=== PATIENT | female | born 1945 | race Caucasian/White ===

== ENCOUNTER 2018-07-25 14:30 | Inpatient (IN) ==
[2018-07-25 15:04] LABS: BASO# 0.03 X1000 (0.0-0.2); BASO% 0.5 % (0.0-0.8); EOS# 0.06 X1000 (0.0-0.7); HEMATOCRIT 40.2 % (37.0-47.0); HEMOGLOBIN 13.5 g/dL (12.0-16.0); LYMPH# 1.06 X1000 (1.2-3.4); LYMPH% 17.4 % (20.5-51.1); MCH 29.8 PG (27-31); MCHC 33.6 g/dL (33-37); MCV 88.7 FL (81-99); MONO# 0.45 X1000 (0.11-0.59); MONO% 7.4 % (1.7-9.3); MPV 9.6 FL (7.4-10.4); NEUT# 4.48 X1000 (1.4-6.5); NEUT% 73.7 % (42.2-75.2); PLT 264 X1000 (130-400); RBC 4.53 XMIL (4.2-5.4); WBC 6.08 X1000 (4.8-10.8)
[2018-07-25 15:19] LABS: INR 1.01; PROTIME 13.8 Seconds (11.0-16.0)
[2018-07-25 15:20] LABS: PTT 30.3 Seconds (22.3-41.8)
[2018-07-25 15:27] LABS: AGAP 10; ALBUMIN 4.4 g/dL (3.5-5.0); ALKALINE PHOSPHATASE 88 U/L (32-104); BUN 17 mg/dL (8-22); CALCIUM 8.8 mg/dL (8.8-10.2); CHLORIDE 104 mmol/L (98-107); CK PROFILE 96 U/L (24-173); COSMO 285; CREATININE 0.7 mg/dL (0.5-0.9); ESTIMATED GFR > 60; GLUCOSE 103 mg/dL (70-104); GOT 21 U/L (10-30); GPT 10 U/L (10-36); POTASSIUM 3.8 mmol/L (3.5-5.1); SODIUM 142 mmol/L (136-145); TCO2 28 mmol/L (25-35); TOTAL PROTEIN 6.9 g/dL (6.3-8.3)
--- NOTE | 2018-07-25 15:27 | Diag Imaging Result Doc PS360 ---
EXAM: CHEST-2 VIEWS HISTORY: cp/sob TECHNIQUE: PA and Lateral chest x-ray COMPARISON: 10/18/2017, 03/12/2017 FINDINGS: The cardiomediastinal silhouette is within normal limits. The pulmonary vasculature is not congested. There is pulmonary emphysema. There are baseline bibasilar reticulonodular infiltrates compatible with fibrosis. Associated basilar markings appear slightly more prominent today suggesting superimposed acute infiltrates versus a progression of disease. No effusion. No pneumothorax. IMPRESSION: 1.Slight increase in bibasilar reticular nodular infiltrates consistent with chronic disease progression or mild acute infiltrates superimposed on chronic changes. 2.Pulmonary emphysema. Electronically signed by Alessandra Silva 07/25/2018 3:25 PM
[2018-07-25] MEDS ORDERED: ROCEPHIN 1 GM in NS 50 ML IV ONE (17:27)
[2018-07-25] MEDS ORDERED: DOXYCYCLINE 100 MG in NS 250 ML IV SCH (18:00)
--- NOTE | 2018-07-25 20:01 | HISTORY AND PHYSICAL ---
CHIEF COMPLAINT: Chest pain with productive cough. HISTORY OF PRESENT ILLNESS: This is a 72-year-old female with a history of hypertension and prior pneumonia, who presents to the emergency room complaining of chest pain with a productive cough that started about 3 days ago. She has had nausea within the last 24 hours. She does state that she has had these symptoms in the past and was diagnosed with pneumonia and, in fact, her chest x- ray shows bibasilar nodular infiltrates and pulmonary emphysema. PAST MEDICAL HISTORY: Hypertension, panic attacks, pneumonia. PAST SURGICAL HISTORY: Back surgeries, tonsillectomy, tubal ligation. SOCIAL HISTORY: She denies any alcohol, tobacco or illicit drug use. ALLERGIES: Codeine, which causes nausea and vomiting. HOME MEDICATIONS: A list will be obtained by the nursing staff and once verified, will review and restart as appropriate. REVIEW OF SYSTEMS: Discussed with patient with pertinent positives stated in the HPI. She denied any syncope, dizziness, palpitations, any fevers, chills, night sweats, recent weight loss or weight gain, any vomiting, diarrhea, constipation, black or bloody vomitus or stools, any hematuria, dysuria, frequency, urgency. PHYSICAL EXAMINATION: GENERAL: This is a 72-year-old female who is lying on the stretcher in the emergency room in no distress. VITAL SIGNS: Blood pressure 153/77, with a heart rate of 63, respirations are 16, temperature is 98 oral, with O2 sats 97-100% on room air. EYES: Pupils are equal, round, react to light. EOMs are intact. Sclerae anicteric. HEENT: Head is normocephalic, atraumatic. Mucous membranes are moist. NECK: Supple, with trachea midline. CARDIOVASCULAR: Regular rate and rhythm. S1 and S2 appreciated. PULMONARY: Breath sounds are clear. They are diminished in the bases. Chest rises and falls with symmetric respiration. Chest wall is nontender to palpation. GASTROINTESTINAL: Abdomen is soft, nontender, nondistended with bowel sounds in all 4 quadrants. NEUROLOGIC: She is alert and oriented x 3. SKIN: Warm and dry. LABS: WBC is 6.0, with hemoglobin 13.5, hematocrit 40.2, platelets of 264,000. Sodium is 142, potassium 3.8, BUN 17, creatinine 0.7 with a glucose of 103. ASSESSMENT AND PLAN: 1. Bibasilar nodular infiltrates, pneumonia. Blood cultures were obtained in the emergency room. She was given Rocephin. We will continue Rocephin daily. We will add doxycycline and follow. As she does have nodular infiltrates, we will check a CT of the thorax with contrast. obtain a sputum culture. Incentive Spirometry 2. HTN restart home meds 3. Panic attacks 4. GERD restart Prilosec Repeat a CBC and CMP in the morning. Telemetry. For deep venous thrombosis prophylaxis, will use SCDs. For gastrointestinal prophylaxis, will continue her Prilosec. Further treatments pending hospital course. Dictated by RANI Medina for Efren Pantoja MD cc: RANI Medina MD MTDD
[2018-07-25] MEDS ORDERED: PRILOSEC PO SCH (21:00)
[2018-07-25] MEDS ORDERED: ZOFRAN IV PRN (22:08)
[2018-07-25] MEDS ORDERED: SOLU-MEDROL IV SCH (22:08)
--- NOTE | 2018-07-25 22:24 | HISTORY AND PHYSICAL ---
CHIEF COMPLAINT: Chest pain. ADDENDUM: Patient seen and examined by myself. Full note dictated and discussed with my nurse practitioner. Patient appears to have worsening nodular pneumonia. We will place on antibiotics, check a CT scan, and we will follow. Please see full note. cc: Efren Pantoja MD
[2018-07-26 01:58] LABS: BILIRUBIN URINE NEGATIVE (NEGATIVE); BLOOD URINE NEGATIVE (NEGATIVE); CLARITY CLEAR (CLEAR); COLOR YELLOW; GLUCOSE URINE NEGATIVE (NEGATIVE); KETONE URINE NEGATIVE (NEGATIVE); LEUKOCYTES URINE NEGATIVE (NEGATIVE); NITRITE URINE NEGATIVE (NEGATIVE); PROTEIN URINE NEGATIVE (NEGATIVE); UROBILINOGEN URINE NORMAL
[2018-07-26 01:59] LABS: URINE SOURCE CLEAN CATCH
[2018-07-26 02:09] LABS: URINE EPITHELIAL CELLS <10 /HPF (<10); URINE RBC <10 /HPF (<10); URINE WBC <10 /HPF (<10)
[2018-07-26 02:10] LABS: URINE BACTERIA NEGATIVE /HFP
[2018-07-26 07:29] LABS: BASO# 0.03 X1000 (0.0-0.2); BASO% 0.6 % (0.0-0.8); EOS# 0.01 X1000 (0.0-0.7); EOS% 0.2 % (0.0-10.0); HEMATOCRIT 41.4 % (37.0-47.0); HEMOGLOBIN 13.9 g/dL (12.0-16.0); IMM GRAN# 0.01 X1000 (0.0-0.04); IMM GRAN% 0.2 % (0.0-0.5); LYMPH# 0.55 X1000 (1.2-3.4); LYMPH% 10.8 % (20.5-51.1); MCH 29.7 PG (27-31); MCHC 33.6 g/dL (33-37); MCV 88.5 FL (81-99); MONO# 0.08 X1000 (0.11-0.59); MONO% 1.6 % (1.7-9.3); MPV 9.9 FL (7.4-10.4); NEUT# 4.42 X1000 (1.4-6.5); NEUT% 86.6 % (42.2-75.2); PLT 261 X1000 (130-400); RBC 4.68 XMIL (4.2-5.4)
[2018-07-26 07:37] LABS: AGAP 12; ALBUMIN 4.1 g/dL (3.5-5.0); ALKALINE PHOSPHATASE 84 U/L (32-104); BUN 15 mg/dL (8-22); CALCIUM 8.7 mg/dL (8.8-10.2); CHLORIDE 106 mmol/L (98-107); COSMO 282; CREATININE 0.7 mg/dL (0.5-0.9); ESTIMATED GFR > 60; GLUCOSE 98 mg/dL (70-104); GOT 22 U/L (10-30); GPT 9 U/L (10-36); POTASSIUM 3.9 mmol/L (3.5-5.1); SODIUM 141 mmol/L (136-145); TCO2 23 mmol/L (25-35); TOTAL PROTEIN 6.8 g/dL (6.3-8.3)
[2018-07-26] MEDS: DOXYCYCLINE 100 MG in NS 250 ML IV SCH ×2 (07:59→21:38)
[2018-07-26] MEDS: PRILOSEC PO SCH ×2 (08:00→21:38)
[2018-07-26] MEDS: PROZAC PO SCH (08:01)
[2018-07-26] MEDS: NORVASC PO SCH (08:02)
[2018-07-26] MEDS: VITAMIN D PO SCH (08:02)
[2018-07-26 08:20] LABS: ANISOCYTOSIS 1+; LYMPHS 10 % (21-51); MONO 2 % (1-9); SEGS 88 % (42-75)
[2018-07-26] MEDS: SOLU-MEDROL IV SCH ×2 (08:38→17:29)
--- NOTE | 2018-07-26 08:59 | EKG Report ---
Test Performed on : 07/25/2018 2:31:07 PM Test Reason : cp/sob Blood Pressure : / mmHG Vent. Rate : 067 BPM Atrial Rate : 067 BPM P-R Int : 164 ms QRS Dur : 076 ms QT Int : 432 ms P-R-T Axes : 074 082 069 degrees QTc Int : 456 ms Normal sinus rhythm. Junctional ST depression, probably normal Borderline ECG When compared with ECG of 08-DEC-2011 14:19, Previous ECG has undetermined rhythm, needs review Unconfirmed Result
--- NOTE | 2018-07-26 09:39 | Diag Imaging Result Doc PS360 ---
EXAM: CT THORAX W/CONTRAST HISTORY: pneumonia TECHNIQUE: CT chest with intravenous contrast. COMPARISON: None. FINDINGS: No pleural effusions. No thoracic aortic aneurysm or dissection. Normal opacification of the pulmonary arteries. No cardiomegaly. There calcified mediastinal and hilar nodes. There is bronchiectasis in the lower lobes and right middle lobe. There are multifocal nodular infiltrates most pronounced in the lower lobes. No consolidation. IMPRESSION: Lower lung bronchiectasis with multinodular infiltrates. Follow-up after treatment is suggested. This exam was performed using automated exposure control, adjustment of mA or kV according to patient size, and/or use of iterative reconstruction technique. Electronically signed by Nasim Alegria 07/26/2018 9:36 AM
[2018-07-26] MEDS: ROCEPHIN 1 GM in NS 50 ML IV SCH (17:29)
--- NOTE | 2018-07-26 19:34 | PROGRESS NOTE ---
DATE: 07/26/2018 SUBJECTIVE: Patient notes that she is feeling a little bit better still having lots of cough, congestion, still having shortness of breath. Denies any fevers or chills. PHYSICAL: Vital Signs: Temperature 97.5, pulse 71, respiratory 22, BP 125/68, O2 saturation 100% on room air. General: Patient is awake, alert, frail-appearing female who is currently in no respiratory distress, she is pleasant to talk with. HEENT: Normocephalic. Neck: Supple. CV: Regular rate, no murmurs. Chest: Decreased but equal breath sounds. Abdomen: Soft, nondistended. Extremities: Moves all extremities. Neuro: No changes. ASSESSMENT: 1. Bibasilar nodular infiltrates. Will continues antibiotics. 2. Abnormal chest x-ray. Multiple chest x-rays in the past have been read as emphysematous although patient is adamant that she went to a welder production line arc once and was told she did not have emphysema. PLAN: We will continue doxycycline, Rocephin, will continue Solu-Medrol, will check a CT scan and will follow. cc: Efren Pantoja MD
[2018-07-27] MEDS: SOLU-MEDROL IV SCH ×3 (01:14→16:34)
[2018-07-27] MEDS: TYLENOL PO PRN ×2 (01:20→11:52)
[2018-07-27] MEDS: PRILOSEC PO SCH ×3 (05:25→20:33)
[2018-07-27] MEDS: DOXYCYCLINE 100 MG in NS 250 ML IV SCH (07:48)
[2018-07-27] MEDS: NORVASC PO SCH (08:10)
[2018-07-27] MEDS: PROZAC PO SCH (08:11)
[2018-07-27] MEDS: VITAMIN D PO SCH (08:11)
[2018-07-27] MEDS ORDERED: LACTULOSE PO PRN (08:34)
[2018-07-27] MEDS: ZANTAC PO SCH ×2 (09:16→20:33)
[2018-07-27] MEDS: ROCEPHIN 1 GM in NS 50 ML IV SCH (16:34)
--- NOTE | 2018-07-27 19:03 | PROVIDER DOCUMENTATION ---
This chart was entered by Ora Lassiter Scribe, acting as scribe for Nixon Murry MD. HPI-Chest Pain - General Chief Complaint: Chest Pain Stated Complaint: CHEST PAIN Time Seen by Provider: 07/25/18 15:00 Source: patient Allergies/Adverse Reactions: Patient Allergies Allergy/AdvReac Type Severity Reaction Status Date / Time codeine AdvReac NAUSEA/VOMI Verified 07/25/18 14:37 TING Home Medications: Home Medication List Medication Instructions Recorded Confirmed Last Taken Type Fluoxetine [Prozac] 20 mg PO QAM 07/17/14 07/25/18 03/11/17 History 0900 Amlodipine [Norvasc] 10 mg PO DAILY PRN 11/05/16 07/25/18 1 Day Ago History ~11/04/16 Cholecalciferol (Vitamin D3) 2,000 unit PO DAILY 03/11/17 07/25/18 03/11/17 History [Vitamin D3] 0900 Zonisamide [Zonegran] 300 mg PO QHS 03/11/17 07/26/18 03/11/17 History 0900 Ranitidine [Zantac] 150 mg PO BID 07/26/18 07/26/18 Unknown History - History of Present Illness-CP Nature of Presenting Problem: 72 yof presents to ED c/o SOB, chest pain, pressure, weakness, nausea, chills, cough, and decreased appetite. Pt denies vomiting, abdominal pain or syncope. Pt has hx of chronic back pain. Location: reports: substernal Chest Pain Radiation: reports: no radiation Quality of Pain: reports: pressure Severity in ED: moderate Onset/Duration: last week Timing: still present, getting worse Context/Activities at Onset: reports: none Modifying Factors: improves with: nothing Nitro Today/Relief: no nitro taken today Aspirin Treatment Today: no aspirin today Review of Systems - Adult - REVIEW OF SYSTEMS - ADULT Constitutional: reports: see HPI, chills, fatique. denies: fever Eyes: reports: no symptoms reported Ears, Nose, Mouth & Throat: reports: no symptoms reported Cardiovascular: reports: see HPI, chest pain. denies: edema, syncope Respiratory: reports: see HPI, chronic cough, shortness of breath, wheezing Gastrointestinal: reports: see HPI, nausea, poor appetite. denies: abdominal pain, diarrhea, vomiting Genitourinary: reports: no symptoms reported Musculoskeletal: reports: no symptoms reported Integumentary: reports: no symptoms reported Neurological: reports: no symptoms reported Psychiatric: reports: no symptoms reported Endocrine: reports: no symptoms reported Hematologic/Lymphatic: reports: no symptoms reported Allergic/Immunologic: reports: no symptoms reported All Other Systems: Reviewed and Negative Past History - Adult - PAST MEDICAL HISTORY-ADULT Review of Records: reports: Nursing Assessment Review, Medications Reviewed, Social history reviewed & non-contributory. Major Childhood Illnesses: reports: denies history Cardiovascular: reports: denies history Respiratory: reports: denies history Gastrointestinal: reports: denies history Obstetrical/Gynecological: reports: denies history Genitourinary: reports: denies history Musculoskeletal: reports: chronic pain (back) Neurological: reports: denies history Endocrine/Immune: reports: denies history Other Conditions: reports: denies history - PRIOR SURGERIES/PROCEDURES Surgical/Procedure History: reports: BTL, tonsillectomy, back/neck - IMMUNIZATION STATUS Childhood Immunizations: See Nurse Assessment Flu Vaccine: See Nurse Assessment - FAMILY HISTORY Family History: reviewed, not pertinent Physical Exam-General - PHYSICAL EXAM-ADULT Initial Vital Signs Reviewed: Yes - CONSTITUTIONAL General Appearance: appears well, alert, moderate distress, thin. negative: anxious, combative - EYES Eyes: PERRL/EOMI, pink conjunctivae. negative: photophobia - HEAD, EARS, NOSE, MOUTH & THROAT HENMT: moist mucous membranes, normal ENT inspection. negative: angioedema - NECK Neck: non-tender, full range of motion, supple, normal inspection. negative: Brudzinski's sign, carotid bruit - RESPIRATORY Respiratory: chest non-tender, lungs clear, normal breath sounds, no pleuratic chest pain, no respiratory distress, no accessory muscle use. negative: crackles, rales, rhonchi - CARDIOVASCULAR Cardiovascular: normal peripheral pulses, regular rate, rhythm, no edema, no gallop, no JVD, no murmur. negative: bradycardia, tachycardia - GASTROINTESTINAL (ABDOMEN) Abdominal Exam: normal bowel sounds, non tender, soft, no organomegaly. negative: rigid, rebound, tenderness - LYMPHATIC Lymphatic: no adenopathy. negative: striations - MUSCULOSKELETAL Back Exam: normal inspection. negative: swelling Extremity: normal range of motion, normal inspection. negative: deformity - SKIN Integumentary: normal color, normal turgor, warm/dry. negative: diaphoresis, jaundice - NEUROLOGIC Neurologic: clinical therapist II-XII nml as tested, grossly normal, no motor/sensory deficits. negative: facial droop, focal weakness - PSYCHIATRIC Psych/Mental Status: normal mood/affect, normal thought content, normal thought process, oriented x 3. negative: anxious Progress - PLAN OF CARE/RESULTS Result Diagrams: 07/26/18 06:20 07/26/18 06:20 - EKG 1 Time of EKG reading by physician:: 14:32 EKG Read and Signed by:: Nixon Murry EKG Interpretation (*Must complete 3 of following elements*): Abnormal Rate: 67 Rhythm: normal sinus QRS: normal ST Wave: depressed (junctional) - XRAY 1 XRAY: Bilateral XRAY Study: Chest Impression: See EMR Report (IMPRESSION: 1.Slight increase in bibasilar reticular nodular infiltrates consistent with chronic disease progression or mild acute infiltrates superimposed on chronic changes. 2.Pulmonary emphysema. Electronically signed by Alessandra Silva 07/25/2018 3:25 PM) - CONSULTS/PCP/HOSPITALIST Notification #1 *Consult/PCP/Hospitalist*: Allan Olson Time Discussed: 17:22 Consult Disposition: other (he accepted pt for admission) Departure - Departure Date of Disposition Decision: 07/25/18 Time of Disposition Decision: 17:25 DIAGNOSIS: Chest pain, Pneumonia Disposition: ADMITTED INPATIENT 09 Certified Medical Emergency: Emergent Condition: Stable - Critical Care Note This patient required my direct & personal management of CC.: No Attestation - Physician/ AMELIA Attestation Patient care was provided by Advanced Practice Provider:: No The physician spent face to face time with patient:: Yes Advanced Practice Provider documentation review:: Supervising physician onsite and consulted in the evaluation and care of this patient. The physician did have a face to face encounter with the patient. This chart was documented by the indicated scribe, (Ora Lassiter Scribe) and accurately reflects the services I performed and decisions made by me, Nixon Murry MD, as attested by the provider's signature.
[2018-07-27] MEDS: ZONEGRAN PO SCH (20:32)
[2018-07-27] MEDS: DOXYCYCLINE PO SCH (20:33)
--- NOTE | 2018-07-28 00:41 | PROGRESS NOTE ---
DATE: 07/27/2018 SUBJECTIVE: Patient overall notes that she is feeling better. She is having less cough, congestion. Denies any fevers or chills. PHYSICAL EXAMINATION: Vital Signs: Temperature 97.7, pulse 72, respiratory 18, BP 129/64. General: Patient is very pleasant to talk with. Elderly female who is frail in overall appearance. HEENT: Normocephalic. Neck: Supple. Cardiovascular: Regular rate. Extremities: Moves all extremities. Neurologic: No focal changes. Skin: Warm and dry. No rashes. ASSESSMENT: 1. Nodular infiltrates. 2. Constipation. 3. Others. PLAN: We will continue patient in the hospital, continue antibiotics. Hopefully she can discharge home over the next 1 or 2 days if her symptoms continue to improve. We will continue her home medications. cc: Efren Pantoja MD
[2018-07-28] MEDS: SOLU-MEDROL IV SCH ×2 (04:04→16:50)
[2018-07-28] MEDS: PRILOSEC PO SCH ×3 (05:39→21:02)
--- NOTE | 2018-07-28 09:36 | Diag Imaging Result Doc PS360 ---
EXAM: CHEST-2 VIEWS - 07/28/2018 HISTORY: hypoxia TECHNIQUE: Chest two views COMPARISON: 07/25/2018 FINDINGS: Heart size is normal. There are COPD/emphysematous changes with hyperexpanded lungs. The ill-defined bilateral lower lung infiltrates appear mildly decreased compared to prior. There are no other acute changes identified. IMPRESSION: COPD/emphysematous changes with hyperexpanded lungs. Mild decrease in ill-defined bilateral lower lung infiltrates. Electronically signed by Dl Fountain 07/28/2018 9:34 AM
[2018-07-28] MEDS: VITAMIN D PO SCH (09:48)
[2018-07-28] MEDS: ZANTAC PO SCH ×2 (09:48→21:03)
[2018-07-28] MEDS: NORVASC PO SCH (09:48)
[2018-07-28] MEDS: TYLENOL PO PRN ×2 (09:48→16:51)
[2018-07-28] MEDS: PROZAC PO SCH (09:48)
[2018-07-28] MEDS: DOXYCYCLINE PO SCH ×2 (09:48→21:04)
[2018-07-28] MEDS: ROCEPHIN 1 GM in NS 50 ML IV SCH (16:51)
[2018-07-28] MEDS: ZONEGRAN PO SCH (21:02)
--- NOTE | 2018-07-28 21:58 | PROGRESS NOTE ---
DATE: 07/28/2018 SUBJECTIVE: Patient notes that overall she is feeling a little bit better. Still nauseated, still coughing, still congested. PHYSICAL EXAMINATION: Vital Signs: Temperature 97.4, pulse 66, respiratory 18, BP 113/56, saturation 95% on room air. General: Patient is awake, alert, currently in no respiratory distress while lying flat in bed. Chest: Does have some mild wheezing. Abdomen: Soft, nondistended. Extremities: Moves all extremities. DICTATION ENDS HERE cc: Efren Pantoja MD
[2018-07-29] MEDS: SOLU-MEDROL IV SCH (04:21)
[2018-07-29] MEDS: PRILOSEC PO SCH (06:06)
[2018-07-29 07:45] VITALS: BP 141/62
[2018-07-29] MEDS: PROZAC PO SCH (08:25)
[2018-07-29] MEDS: ZANTAC PO SCH (08:25)
[2018-07-29] MEDS: NORVASC PO SCH (08:26)
[2018-07-29] MEDS: VITAMIN D PO SCH (08:26)
[2018-07-29] MEDS: DOXYCYCLINE PO SCH (08:26)
[2018-07-29] MEDS ORDERED: SUBOXONE 8 MG/2 MG FILM SL SCH (09:00)
--- NOTE | 2018-07-29 12:29 | DISCHARGE SUMMARY ---
ADMISSION DATE: 07/25/2018 DISCHARGE DATE: DIAGNOSES: 1. Nodular infiltrate, improving. 2. Constipation, resolved. 3. Hypertension. 4. History of panic attacks. DIAGNOSTICS: 1. Chest x-ray revealed slight increase in bibasilar reticular nodule infiltrates consistent with chronic disease progression or mild acute infiltrate superimposed on chronic changes, pulmonary emphysema. 2. CT of the chest with IV contrast revealed lower lung bronchiectasis with multi nodular infiltrates. Follow-up after treatment is suggested. 3. Chest x-ray 07/28/2018 revealed COPD changes with hyperexpanded lungs, mild decrease in ill- defined bilateral lower lung infiltrates. MICROBIOLOGY: 1. Blood cultures x2 revealed no growth after 48 hours. 2. Sputum culture and Gram stain. HOSPITAL COURSE: Ms. Watkins presented to the emergency room complaining of chest pain with a productive cough. She was found to have bibasilar nodular infiltrates. Blood cultures returned no growth. She was initially treated with Rocephin and doxycycline and she will be transitioned over to Omnicef and doxycycline on discharge. She has a history of COPD for which steroids were tapered. She did tolerate this well. Thankfully, she is ready for discharge. Blood pressure is 141/62 with a heart rate of 58, respirations 18, temperature 97.2 degrees with room air saturation 100%. DISCHARGE PHYSICAL EXAMINATION: Cardiovascular: Regular rate and rhythm. S1 and S2 appreciated. She has no lower extremity edema. Calves are nontender bilateral and peripheral pulses are palpable x4 extremities. Pulmonary: Breath sounds are clear with no increased work of breathing noted. Chest rises and falls symmetric with respiration. Chest wall is nontender to palpation. Gastrointestinal: Abdomen is soft, nontender, nondistended with bowel sounds in all 4 quadrants. Neurologic: She is alert and oriented x3 with cranial nerves 2-12 grossly intact. Skin: Warm and dry. DISCHARGE MEDICATIONS: 1. Norvasc 10 mg p.o. daily. 2. Omnicef 300 mg p.o. b.i.d. for 5 days. 3. Vitamin D 2000 units p.o. daily. 4. Doxycycline 100 mg p.o. b.i.d. for 5 days. 5. Prozac 20 mg p.o. in the morning. 6. Prilosec 40 mg p.o. b.i.d. 7. Zantac 150 mg p.o. b.i.d. 8. Zonegran 300 mg p.o. at bedtime FOLLOWUP: She is to follow up with Dr. Efren Pantoja in the next 2 to 3 weeks, sooner if needed. The patient will need a repeat CT scan of the thorax with contrast to evaluate multi nodule infiltrates in bilateral lungs once pneumonia is cleared. She is being discharged home in stable condition with family members. TIME SPENT: This is a greater than 30 minute discharge. Dictated by RANI Medina for Efren Pantoja MD cc: RANI Medina MD
--- NOTE | 2018-07-30 05:09 | DISCHARGE SUMMARY ---
ADMISSION DATE: 07/25/2018 DISCHARGE DATE: 07/29/2018 DISCHARGE DIAGNOSIS: Basilar nodular pneumonia. Patient seen and examined by myself. Full note dictated and discussed with nurse practitioner. Patient thankfully had an uneventful hospital course. Was admitted to the hospital, placed on IV antibiotics, continued to improve and will be discharged home today on antibiotics. cc: Efren Pantoja MD
[2018-07-30] MEDS ORDERED: SOLU-MEDROL IV SCH (06:00)
== END 2018-07-29 12:17 | disposition home or self-care (01) | DRG 194 ==
LOC: P.ED 14:30 → P.MEDSURG 21:44
PROVIDERS: ATTEND Family Medicine
CPT/HCPCS: 71020; 71046; 71260; 80053; 81001; 82550; 83880; 84484; 85025; 85610; 85730; 87040; 87070; 87205; 93005; 94761; 94799; 96365; 96366; 96367; 99285; A9270; J0696; J2405; J2920; J2930; J7050; Q9967

== ENCOUNTER 2019-04-23 14:58 | Inpatient (IN) ==
--- NOTE | 2019-04-23 15:41 | Diag Imaging Result Doc PS360 ---
EXAM: CHEST-1 VIEW HISTORY: INJURY TECHNIQUE: Single view COMPARISON: 04/18/2019 FINDINGS: The lungs are hyperexpanded. No contusion. No pneumothorax. There are interstitial markings in the lower lungs, particularly the left lung base similar to the prior exam. No pleural effusions identified. IMPRESSION: Stable chest Electronically signed by Nasim Alegria 04/23/2019 3:39 PM
--- NOTE | 2019-04-23 15:46 | Diag Imaging Result Doc PS360 ---
EXAM: XRAY PELVIS W/HIP 2-3VW LT HISTORY: injury TECHNIQUE: Three views COMPARISON: None. FINDINGS: There is a subcapital femoral neck fracture on the left. The femoral head remains in the acetabulum. Femoral shaft is slightly rotated. IMPRESSION: Left femoral neck fracture. Electronically signed by Nasim Alegria 04/23/2019 3:43 PM
[2019-04-23] MEDS ORDERED: TORADOL IM ONE (16:07)
--- NOTE | 2019-04-23 16:07 | PROVIDER DOCUMENTATION ---
This chart was entered by Bibi Bautista Scribe, acting as scribe for Jarrett Sharif MD. HPI-Musculoskeletal Pain/Inj - GENERAL Chief Complaint: Fall Stated Complaint: Fall Time Seen by Provider: 04/23/19 15:38 Source: patient - HX OF PRESENT ILLNESS-MUSKULOSKELTAL Nature of Presenting Problem: Pt is a 73 yof who presents to the ED via ems with a cc of L hip pain after falling. Pt reports walking to open her front door when she fell due to weakness. Pt denies any LOC. Pt denies any other complaints. Quality of Pain: reports: aching Severity in ED: mild Onset/Duration: just prior to arrival Timing: still present Modifying Factors: improves with: nothing Any recent injury?: Yes Locality of Occurance: Home Similar Symptoms Previously?: No Recently seen or treated by another doctor?: No - FALL INJURY Location of Pain/Injury: reports: other (L hip) Pain Radiation: reports: no radiation Reason for Fall: reports: unknown Symptoms prior to fall:: reports: none Loss of Consciousness: no loss of consciousness Injury Associated Symptoms: reports: denies symptoms - HIP/PELVIS PAIN/INJURY Hip Pain Location: reports: hip (L) Pain Radiation: reports: no radiation Context / Method of Injury: reports: fall Associated Symptoms: reports: denies symptoms Review of Systems - Adult - REVIEW OF SYSTEMS - ADULT Constitutional: reports: see HPI Eyes: reports: no symptoms reported Ears, Nose, Mouth & Throat: reports: no symptoms reported Cardiovascular: reports: no symptoms reported Respiratory: reports: no symptoms reported Gastrointestinal: reports: no symptoms reported Genitourinary: reports: no symptoms reported Musculoskeletal: reports: see HPI, joint pain (L hip) Integumentary: reports: no symptoms reported Neurological: reports: no symptoms reported Psychiatric: reports: no symptoms reported Endocrine: reports: no symptoms reported Hematologic/Lymphatic: reports: no symptoms reported Allergic/Immunologic: reports: no symptoms reported All Other Systems: Reviewed and Negative Past History - Adult - PAST MEDICAL HISTORY-ADULT Review of Records: reports: Old Records Reviewed, Nursing Assessment Review Major Childhood Illnesses: reports: denies history Cardiovascular: reports: denies history Respiratory: reports: denies history Gastrointestinal: reports: denies history Obstetrical/Gynecological: reports: denies history Genitourinary: reports: denies history Musculoskeletal: reports: chronic pain (back) Neurological: reports: denies history Endocrine/Immune: reports: denies history Other Conditions: reports: denies history - PRIOR SURGERIES/PROCEDURES Surgical/Procedure History: reports: BTL, tonsillectomy, back/neck - IMMUNIZATION STATUS Childhood Immunizations: See Nurse Assessment Flu Vaccine: See Nurse Assessment - FAMILY HISTORY Family History: reviewed, not pertinent - SOCIAL HISTORY Smoking: non-smoker Substance Use: denies Living Situation: family Physical Exam-Injury Related - Physical Exam-Injury Related Initial Vital Signs Reviewed: Yes General Appearance: alert, no apparent distress Eyes: PERRL/EOMI, pink conjunctivae Head, Ears, Nose, Mouth & Throat: normocephalic/atraumatic, moist mucous membranes Neck: non-tender, full range of motion, normal inspection Respiratory: chest non-tender, lungs clear, normal breath sounds Cardiovascular: normal peripheral pulses, regular rate, rhythm Abdominal Exam: normal bowel sounds, non tender, soft Lymphatic: no adenopathy Back Exam: normal inspection Extremity: normal range of motion, tenderness (L hip), other (L hip tenderness) Integumentary: normal color, warm/dry Neurologic: grossly normal Psych/Mental Status: normal mood/affect, normal thought content, normal thought process, oriented x 3 - Glascow Coma Score Best Eye Response (Madai): (4) open spontaneously Best Verbal Response (Madai): (5) oriented Best Motor Response (Madai): (6) obeys commands Progress - PLAN OF CARE/RESULTS Progress/Plan/Lab Results: Vital Signs - 8 hr 04/23/19 15:39 Pulse Rate 69 Respiratory Rate 18 Blood Pressure 153/82 O2 Sat by Pulse Oximetry 97 Orders Category Date Time Status CHEST-1 VIEW [RAD] Stat Exams 04/23/19 15:12 Completed XRAY PELVIS W/HIP 2-3VW LT [RAD] Stat Exams 04/23/19 14:58 Completed CBC WITH DIFF [HEME] Stat Lab 04/23/19 16:04 Ordered COMPREHENSIVE METABOLIC PANEL [CHEM] Stat Lab 04/23/19 16:04 Ordered URINALYSIS W/POSS RFLX CULT [URINALYSIS] Stat Lab 04/23/19 16:04 Uncollected EKG [EKG] Routine Ther 04/23/19 16:03 Ordered - XRAY 1 XRAY: Bilateral XRAY Study: Chest Impression: Normal ( EXAM: CHEST-1 VIEW HISTORY: INJURY TECHNIQUE: Single view COMPARISON: 04/18/2019 FINDINGS: The lungs are hyperexpanded. No contusion. No pneumothorax. There are interstitial markings in the lower lungs, particularly the left lung base similar to the prior exam. No pleural effusions identified. IMPRESSION: Stable chest Electronically signed by Nasim Alegria 04/23/2019 3:39 PM 04/23/19 1539 Interpreting Physician: Nasim Alegria MD Dictated Date/Time: 04/23/19 1538 cc: Jarrett Sharif MD;) 2 XRAY: Left XRAY Study: Hip Impression: Abnormal (EXAM: XRAY PELVIS W/HIP 2-3VW LT HISTORY: injury TECHNIQUE: Three views COMPARISON: None. FINDINGS: There is a subcapital femoral neck fracture on the left. The femoral head remains in the acetabulum. Femoral shaft is slightly rotated. IMPRESSION: Left femoral neck fracture. Electronically signed by Nasim Alegria 04/23/2019 3:43 PM 04/23/19 1543 Interpreting Physician: Nasim Alegria MD Dictated Date/Time: 04/23/19 1542 cc: Jarrett Sharif MD;) Departure - Departure Date of Disposition Decision: 04/23/19 Time of Disposition Decision: 16:06 DIAGNOSIS: Closed left hip fracture Disposition: ADMITTED INPATIENT 09 Certified Medical Emergency: Emergent Condition: Stable - Critical Care Note This patient required my direct & personal management of CC.: No Attestation - Physician/ AMELIA Attestation Patient care was provided by Advanced Practice Provider:: No The physician spent face to face time with patient:: Yes Advanced Practice Provider documentation review:: Supervising physician onsite and consulted in the evaluation and care of this patient. The physician did have a face to face encounter with the patient. This chart was documented by the indicated scribe, (Bibi Bautista Scribe) and accurately reflects the services I performed and decisions made by me, Jarrett Sharif MD, as attested by the provider's signature.
[2019-04-23 16:22] LABS: URINE SOURCE CATH
[2019-04-23 16:30] LABS: BASO# 0.04 X1000 (0.0-0.2); BASO% 0.4 % (0.0-0.8); HEMATOCRIT 39.6 % (37.0-47.0); HEMOGLOBIN 12.8 g/dL (12.0-16.0); IMM GRAN# 0.07 X1000 (0.0-0.04); IMM GRAN% 0.7 % (0.0-0.5); LYMPH# 0.65 X1000 (1.2-3.4); LYMPH% 6.6 % (20.5-51.1); MCH 28.3 PG (27-31); MCHC 32.3 g/dL (33-37); MCV 87.6 FL (81-99); MONO# 0.55 X1000 (0.11-0.59); MONO% 5.6 % (1.7-9.3); MPV 9.3 FL (7.4-10.4); NEUT# 8.44 X1000 (1.4-6.5); NEUT% 85.7 % (42.2-75.2); PLT 331 X1000 (130-400); RBC 4.52 XMIL (4.2-5.4); WBC 9.85 X1000 (4.8-10.8)
[2019-04-23 16:31] LABS: BILIRUBIN URINE NEGATIVE (NEGATIVE); BLOOD URINE TRACE (NEGATIVE); COLOR YELLOW; GLUCOSE URINE NEGATIVE (NEGATIVE); KETONE URINE TRACE mg/dL (NEGATIVE); LEUKOCYTES URINE NEGATIVE (NEGATIVE); NITRITE URINE NEGATIVE (NEGATIVE); PROTEIN URINE NEGATIVE (NEGATIVE); TURBIDITY URINE CLEAR (CLEAR); UROBILINOGEN URINE NORMAL (NORMAL)
[2019-04-23 16:32] LABS: UR EPITHELIAL CELLS <10 /HPF (<10); URINE BACTERIA NEGATIVE /HPF; URINE RBC <10 /HPF (<10); URINE WBC <10 /HPF (<10)
[2019-04-23] MEDS ORDERED: NS 1,000 ML IV ONE (16:32)
[2019-04-23] MEDS ORDERED: ZOFRAN IV PRN (16:40)
[2019-04-23 16:45] LABS: AGAP 12; ALBUMIN 4.2 g/dL (3.5-5.0); ALKALINE PHOSPHATASE 101 U/L (32-104); BUN 12 mg/dL (8-22); CALCIUM 8.9 mg/dL (8.8-10.2); CHLORIDE 101 mmol/L (98-107); COSMO 274; CREATININE 0.8 mg/dL (0.5-0.9); ESTIMATED GFR > 60; GLUCOSE 98 mg/dL (70-104); GOT 26 U/L (10-30); GPT 15 U/L (10-36); POTASSIUM 3.7 mmol/L (3.5-5.1); SODIUM 137 mmol/L (136-145); TCO2 24 mmol/L (25-35); TOTAL PROTEIN 7.2 g/dL (6.3-8.3)
--- NOTE | 2019-04-23 17:03 | EKG Report ---
Test Performed on : 04/23/2019 4:37:11 PM Test Reason : emboli Blood Pressure : / mmHG Vent. Rate : 068 BPM Atrial Rate : 068 BPM P-R Int : 134 ms QRS Dur : 082 ms QT Int : 432 ms P-R-T Axes : 075 081 070 degrees QTc Int : 459 ms Normal sinus rhythm. Normal ECG When compared with ECG of 25-JUL-2018 14:31, No significant change was found Unconfirmed Result
[2019-04-23 17:21] LABS: BANDS 3 % (0-1); EOS 4 % (1-10); LARGE PLATELETS OCCASIONAL; LYMPHS 8 % (21-51); MONO 7 % (1-9); SEGS 77 % (42-75)
[2019-04-23] MEDS: MORPHINE IV PRN ×2 (17:35→21:08)
--- NOTE | 2019-04-23 19:32 | HISTORY AND PHYSICAL ---
CHIEF COMPLAINT: Fall, left hip pain. HISTORY OF PRESENT ILLNESS: This is a 73-year-old female who presented to the emergency room after falling and developing left hip pain. The patient states that she tripped and fell. She did not lose consciousness. She did not hit her head. She describes this pain as a 9/10. It is worse with any movement. It does get better when she is sitting still and not moving. X-ray revealed subcapital femoral neck fracture of the left, femoral head remains in acetabulum, femoral shaft is slightly rotated. PAST MEDICAL HISTORY: Hypertension, chronic back pain requiring pain pump. PAST SURGICAL HISTORY: Back surgeries, tonsillectomy, tubal ligation. SOCIAL HISTORY: She denies alcohol, tobacco, or illicit drug use. ALLERGIES: Codeine which causes nausea, vomiting. HOME MEDICATIONS: A list will be obtained by the nursing staff and once verified will review restart as appropriate. REVIEW OF SYSTEMS: Discussed patient with pertinent positives stated in HPI. She denied any syncope, dizziness, any chest pain or palpitations, shortness of breath, cough, fever, chills, night sweats, any nausea, vomiting, diarrhea, constipation, black or bloody vomitus or stools, hematuria, dysuria, frequency, urgency. PHYSICAL EXAMINATION: GENERAL: This is a 73-year-old female who is lying on the stretcher in the emergency room in no distress. VITAL SIGNS: Blood pressure is 153/80 with a heart rate of 70, respirations are 18, temperature was 98 degrees with room air saturations 97%. HEENT: Pupils are equal, round, react to light. EOMs are intact. Head is normocephalic, atraumatic. Mucous membranes are moist. NECK: Supple. Trachea midline. CARDIOVASCULAR: Regular rate and rhythm. S1, S2 appreciated. She has no lower extremity edema. Peripheral pulses are palpable x4 extremities. PULMONARY: Breath sounds are clear. No increased work of breathing noted. Chest rises and falls symmetric respiration. GASTROINTESTINAL: Abdomen soft, nontender, nondistended with bowel sounds in all 4 quadrants. NEUROLOGIC: She is alert, oriented x3. SKIN: Warm and dry. Chest x-ray reveals stable chest. Left hip and pelvis, left femoral neck fracture. Femoral head remains in acetabulum. Femoral shaft is slightly rotated. LABS: WBC is 9.8 with hemoglobin 12.8, hematocrit 39.6, platelets 331,000. Sodium 137, potassium 3.7, BUN 12, creatinine 0.8, glucose of 98. Urinalysis is essentially negative. ASSESSMENT AND PLAN: 1. Left femoral neck fracture. 2. Recent fall. 3. Chronic back pain with a pain pump. 4. Hypertension. PLAN: The patient will be admitted to the hospital. We will transfer her to [facility]. She will have clear liquids now. She will be NPO after midnight. Will identify her home medications and continue as appropriate. Consult Dr. Montes De Oca with Orthopedics. Will place a Bennett catheter and will monitor strict I and O. Check a CBC and CMP in the morning. We will continue with gentle IV hydration, IV Zofran for nausea and 2 mg of morphine every 4 hours p.r.n. pain. Patient was examined and plan was discussed with Dr. Pantoja. Further treatments pending hospital course. Dictated by RANI Medina for Efren Pantoja MD cc: RANI Medina MD
[2019-04-24] MEDS: MORPHINE IV PRN ×5 (01:59→13:52)
[2019-04-24 06:17] LABS: BASO# 0.02 X1000 (0.0-0.2); BASO% 0.3 % (0.0-0.8); EOS# 0.05 X1000 (0.0-0.7); EOS% 0.6 % (0.0-10.0); HEMATOCRIT 37.1 % (37.0-47.0); HEMOGLOBIN 11.9 g/dL (12.0-16.0); LYMPH# 0.59 X1000 (1.2-3.4); LYMPH% 7.6 % (20.5-51.1); MCH 28.3 PG (27-31); MCHC 32.1 g/dL (33-37); MCV 88.1 FL (81-99); MONO# 0.54 X1000 (0.11-0.59); MPV 9.2 FL (7.4-10.4); NEUT# 6.56 X1000 (1.4-6.5); NEUT% 84.5 % (42.2-75.2); PLT 287 X1000 (130-400); RBC 4.21 XMIL (4.2-5.4); RDW 12.8 % (11.5-14.5); WBC 7.76 X1000 (4.8-10.8)
[2019-04-24 06:51] LABS: AGAP 11; BUN 9 mg/dL (8-22); CALCIUM 8.5 mg/dL (8.8-10.2); CHLORIDE 104 mmol/L (98-107); COSMO 270; CREATININE 0.6 mg/dL (0.5-0.9); ESTIMATED GFR > 60; GLUCOSE 93 mg/dL (70-104); SODIUM 136 mmol/L (136-145); TCO2 21 mmol/L (25-35)
[2019-04-24] MEDS ORDERED: KEFZOL 1 GM/D5W 1 GM/50 ML IVPB IV ONE (08:59)
--- NOTE | 2019-04-24 09:02 | ORTHOPAEDICS CONSULTATION ---
DATE: 04/24/2019 REASON FOR CONSULT: A left hip fracture. HISTORY OF PRESENT ILLNESS: Ms. Watkins is a 73-year-old female who fell yesterday at approximately 2 p.m. after she was getting up and states that she felt lightheaded, and then she fell. She denies any loss of consciousness and did not hit her head. She developed immediate pain in her left hip. EMS was called and subsequently transported her to [facility]. She was then evaluated in the ER there and found to have a left femoral neck fracture. She was then transported to [facility]. Orthopedics has been consulted for this femoral neck fracture. She states she has been sick recently with having pneumonia at the 1st of the month that was treated with Zithromax and as of 04/18/2019, she was told that her pneumonia had cleared. She was then treated with Augmentin for a sinus infection. PAST MEDICAL HISTORY: Anxiety and chronic low back pain resulting in a pain pump. PAST SURGICAL HISTORY: Back surgeries x3, tonsillectomy, and tubal ligation. SOCIAL HISTORY: She denies any alcohol, tobacco, or illicit drug use. She usually lives at home by herself and usually ambulates without the use of a walker or cane. ALLERGIES: Codeine. HOME MEDICATIONS: As listed in patient's medical record. REVIEW OF SYSTEMS: A 10 point review of systems was reviewed with the patient and was negative except as mentioned in the HPI. PHYSICAL EXAMINATION: General: Ms. Watkins is a 73-year-old female who is lying in her bed at this time, on her right side. She is not complaining of any pain at this time and is in no acute distress. Her son is at bedside. Her most recent vital signs are a temperature of 97.9 degrees and a heart rate of 68. Her blood pressure is 140/75. Cardiovascular: Regular rate and rhythm. Pulmonary: Equal chest rise and fall. No labored breathing. Extremities: Left lower extremity is shortened but not externally rotated. The patient does have pain with any gentle movement of the hip. She does have active dorsiflexion and plantar flexion of her left foot. Her sensation is intact. She does have a strong palpable pedal pulse. LABS AND IMAGING: Labs reveal a white count of 7.76 which is down from 9.85 yesterday. BUN and creatinine of 9 and 0.6. A hip x-ray revealed a left subcapital femoral neck fracture with the femoral head remaining in the acetabulum. ASSESSMENT: 1. Left femoral neck fracture. 2. Fall. PLAN: At this point, Ms. Watkins is admitted to the hospitalist. She has been NPO since midnight last night. Dr. Madrigal has reviewed Ms. Watkins's x-rays and the plan is for Ms. Watkins to go to surgery today with a left hip hemiarthroplasty. Risks and benefits of surgery were discussed with the patient and her son who was at bedside, including but not limited to anesthesia, infection, nerve injury, vessel injury, infection, and . They wish to proceed with surgery at this time. Ms. Watkins would most likely benefit from an inpatient rehab after her surgery, as she states that she has noticed her stamina declining at home due to her recent pneumonia diagnosis and illnesses over the last 2 weeks. This surgery will be performed by Dr. Madrigal or one of the [facility]. All their questions were answered. Dictated by RANI Hannon for Radames Madrigal MD cc: Radames Madrigal MD
--- NOTE | 2019-04-24 11:49 | PROGRESS NOTE ---
DATE: 04/24/2019 HISTORY OF PRESENT ILLNESS: I have seen and examined Ms. Watkins today. At her bedside was a friend of hers and her son. Ms. Watkins refers to be doing well. She is still in a lot of pain especially in the left hip. Ms. Watkins is a 73-year-old female who has chronic pain syndrome, is on a pain pump, follows up with Dr. Holley at [facility]. She seems to have been doing fairly okay until the day prior to presentation. She says she was sleeping. She heard her doorbell ring, woke up to go and open the door for her friend and then for some reason she tripped on her feet and fell. After she fell, she was not able to get up immediately to help herself. She knew she had broken her hip. Eventually, I understand the manager paper of the facility where she resides, opened the door and then let in her friend and they called EMS and brought her in. She presented initially to [place] where she was evaluated and found to have a left femoral neck fracture. She was transferred here for higher level of care. Ms. Watkins has been seen today by Ms. Moreno who is the RADAR OPERATOR for Dr. Madrigal and it appears there is a plan for surgical intervention today. PHYSICAL EXAMINATION: Vital Signs: Her current vitals blood pressure is 140/75, pulse of 68, respirations 16, temperature 97.9 degrees. The patient is saturating 95% on room air. General: Ms. Watkins is a 73-year-old female. She looks remarkably cachectic, undernourished with BMI of 16.1. Mucosa is slightly dry. Anicteric. Acyanotic. Neck: Supple. She is in a lot of pain. Chest: Good air entry bilateral. There was no crepitations. No rhonchi. Cardiovascular: Regular rate and rhythm. No murmurs, no rubs, no gallops Gastrointestinal: Abdomen was soft, nontender. Bowel sounds present. There is a generator pocket on the left lower abdomen which is for her pain pump. Extremities: The left leg is slightly shorter. A lot of pain trying to move it, but she seems to be neurovascularly intact. Central Nervous System: The patient is awake, alert, and oriented. IMAGING STUDIES: X-ray from yesterday showed a left femoral neck fracture. A chest x-ray shows no pneumothorax, no consolidation, no effusion. An EKG on admission showed a normal sinus rhythm. No ST-segment abnormality or T-waves abnormality. LABORATORY DATA: CBC is reviewed and is unremarkable. Chemistry is reviewed, completely normal. The patient's urinalysis is also unremarkable. CURRENT MEDICATIONS: Have all been reviewed. ASSESSMENT: 1. Status post mechanical fall resulting in a left femoral neck fracture. Patient is pending surgical intervention today. I think the plan will eventually be to get her to rehab. 2. Chronic back pain with pain pump. Ms. Watkins refers that she is on low-dose morphine, but she does not know the settings. I reached out to Dr. Holley' office at [phone]. I was able with speak Jose Sarah who is the administrative assistant receptionist and she is going to talk with Dr. Holley to call me back. Ms. Watkins refers that her pump is about to within 3 days and I want to know what recommendations Dr. Holley' office will give us in terms of the medication change, the dosing and also what recommendations they will give us in terms of the acute pain management on top of what she gets on a regular basis. 3. Hypertension controlled. 4. Undernourished with BMI of 16.1. We will get a dietitian to evaluate her for nutritional supplement. PREOPERATIVE EVALUATION: Ms. Watkins is a 73-year-old who was some remote history of blood pressure issues, but she is not on any regular home medication despite amlodipine is listed as p.r.n. on her home list. She denies any congestive heart failure. No heart attack in the past. No chronic lung disease or chronic kidney or liver disease. She is currently not on any anticoagulation and she is not on any pxkj-wdr-yrcootg medication except Prozac for depression. She currently denies any acute chest pain or shortness of breath. We think Ms. Watkins is a low to moderate surgical risk patient for intermediate nonvascular orthopedic surgery. Her surgery is urgent/emergent to preserve functionality. We recommend surgery to proceed. cc: Miguel Hargrove MD
[2019-04-24] MEDS ORDERED: DIPRIVAN 1% ONE (13:36)
[2019-04-24] MEDS ORDERED: XYLOCAINE-MPF 2% ONE (13:38)
[2019-04-24] MEDS ORDERED: QUELICIN (DOSE) ONE (13:40)
[2019-04-24] MEDS ORDERED: NEO-SYNEPHRINE ONE (13:53)
[2019-04-24] MEDS ORDERED: SUFENTA ONE (14:54)
[2019-04-24] MEDS ORDERED: DURAMORPH ONE (14:56)
[2019-04-24] MEDS ORDERED: CYKLOKAPRON 1,000 MG/NS 1,000 MG/100 ML IVPB ONE (14:57)
[2019-04-24] MEDS ORDERED: SODIUM CHLORIDE 0.9% ONE (14:57)
[2019-04-24] MEDS ORDERED: NEOSPORIN G.U. IRRIGANT ONE (14:57)
[2019-04-24] MEDS ORDERED: TORADOL ONE (14:57)
[2019-04-24] MEDS ORDERED: MARCAINE 0.25% PF ONE (14:57)
[2019-04-24] MEDS ORDERED: EXPAREL 1.3% ONE (14:57)
[2019-04-24] MEDS ORDERED: EPHEDRINE ONE (16:23)
[2019-04-24] MEDS ORDERED: DECADRON ONE (16:25)
[2019-04-24] MEDS ORDERED: ZOFRAN ONE (16:25)
[2019-04-24] MEDS ORDERED: MORPHINE IV PRN ×4 (17:00→18:00)
[2019-04-24] MEDS ORDERED: ZOFRAN IV PRN (18:00)
[2019-04-24] MEDS ORDERED: OXY IR PO PRN ×2 (18:00)
[2019-04-24] MEDS ORDERED: MILK OF MAGNESIA PO PRN (18:00)
[2019-04-24] MEDS ORDERED: ZOFRAN ODT PO PRN (18:00)
[2019-04-24] MEDS: TYLENOL PO SCH (18:15)
[2019-04-24] MEDS: ULTRAM PO SCH (18:16)
[2019-04-24] MEDS: NS 1,000 ML IV SCH (18:16)
--- NOTE | 2019-04-24 20:18 | OPERATIVE NOTE ---
PROCEDURE DATE: 04/24/2019 PREOPERATIVE DIAGNOSIS: Left displaced femoral neck fracture. POSTOP DIAGNOSIS: Left displaced femoral neck fracture. PROCEDURE: Left bipolar hip arthroplasty. ANESTHESIA: Spinal. SURGEON: Radames Madrigal MD. DIRECTOR OF ENGINEERING: RANI Hannon. COMPLICATIONS: None. BLOOD LOSS: Minimal. DESCRIPTION OF PROCEDURE: The patient was brought to the operative suite and placed in supine position, after satisfactory administration of spinal anesthesia patient placed on the OSI table in the usual position for left hip, left hip was then prepped and draped in usual sterile fashion. Longitudinal incision made beginning 2.5 cm distal, 2.5 cm lateral to the anterior superior iliac spine extending distally and slightly laterally 8 cm dissected sharply through skin and subcutaneous tissue down tensor fascia, tensor fascia was incised dissected bluntly down deep tensor fascia, deep tensor fascia was incised, circumflex vessels electrocauterized exposing anterior capsule. T capsulotomy was performed exposing the anterior neck. The femoral neck cut was made. The femoral head was removed power corkscrew was measured to size 48, a 48 was trialed and found to be excellent fit. Attention was directed the femur was externally rotated, extended, adducted and elevated out of the wound with the hook on OSI bed, lateral neck was rongeured, the canal was serially broached to a size 10, a size 10 high offset -3 and half neck length was trialed found be excellent leg length fit and fill of the stem and offset, trial was removed. Definitive stem was seated on the femur, the 28 mm head with 40 mm bipolar was seated on the Hernandez taper and the hip was reduced. The anterior capsule was repaired with 0 V-Loc. The hip was copiously irrigated with normal saline containing irrigant and Vashe irrigation and then the hip was copiously infiltrated with Exparel including posterior capsule, anterior capsule, intramuscular and subcutaneous tissue, the tensor fascia was closed with 0 V-Loc, skin edge approximated 2-0 Vicryl closed with 4-0 Monocryl and a Prineo dressing. Patient tolerated the procedure well without complication, end the procedure all counts correct x2, the patient transferred the recovery room stable condition . cc: Radames Madrigal MD
[2019-04-24] MEDS: KEFZOL 1 GM/D5W 1 GM/50 ML IVPB IV SCH (23:44)
[2019-04-25] MEDS: CELEBREX PO SCH ×2 (00:30→08:25)
[2019-04-25] MEDS: COLACE PO SCH ×3 (00:33→22:12)
[2019-04-25] MEDS: ULTRAM PO SCH ×4 (00:33→17:21)
[2019-04-25] MEDS: LYRICA PO SCH ×2 (00:34→08:25)
[2019-04-25] MEDS: PERIDEX MT SCH ×2 (00:35→08:25)
[2019-04-25] MEDS: TYLENOL PO SCH ×4 (00:35→17:21)
[2019-04-25] MEDS ORDERED: XARELTO PO SCH (06:00)
[2019-04-25 06:42] LABS: HEMATOCRIT 33.2 % (37.0-47.0); HEMOGLOBIN 10.7 g/dL (12.0-16.0)
[2019-04-25] MEDS: KEFZOL 1 GM/D5W 1 GM/50 ML IVPB IV SCH (06:57)
[2019-04-25] MEDS: NS 1,000 ML IV SCH (06:58)
[2019-04-25 07:43] LABS: AGAP 11; BUN 7 mg/dL (8-22); CALCIUM 8.6 mg/dL (8.8-10.2); CHLORIDE 104 mmol/L (98-107); COSMO 274; CREATININE 0.6 mg/dL (0.5-0.9); ESTIMATED GFR > 60; GLUCOSE 113 mg/dL (70-104); POTASSIUM 3.5 mmol/L (3.5-5.1); SODIUM 138 mmol/L (136-145); TCO2 23 mmol/L (25-35)
[2019-04-25] MEDS: PEPCID PO SCH (08:25)
[2019-04-25] MEDS ORDERED: DECADRON IV ONE (09:00)
[2019-04-25] MEDS: LOVENOX SUBQ SCH (09:43)
[2019-04-25] MEDS ORDERED: NS 500 ML ONE (10:07)
--- NOTE | 2019-04-25 11:27 | PROGRESS NOTE ---
DATE: 04/25/2019 SUBJECTIVE: The patient reports feeling fine. Pain in the left hip is under control. No complaints at this time. OBJECTIVE: Vital Signs: Temperature 98.2 degrees, heart rate 77, respiratory rate 20, blood pressure 147/75, O2 saturation 100% on room air. General Examination: This is a malnourished and cachectic, 73-year-old, female lying in bed, in no acute distress. Cardiovascular Examination: S1 and S2 heard. No murmurs, gallops, or rubs. Regular rate and rhythm. Respiratory Examination: Clear bilaterally to auscultation. No work of breathing or using accessory muscles. Abdomen: Soft, nontender to palpation. There is a generator pocket in the left lower abdomen which is for her pain pump. Bowel sounds are present. No organomegaly. Extremities: No clubbing, cyanosis, or edema. Peripheral pulses present in both legs. Left hip covered by a dressing. Neurological Examination: The patient is awake, alert, oriented x3. Moves 4 extremities. Laboratory Data: Hemoglobin 10.7, hematocrit 33.2. Normal BMP. ASSESSMENT AND PLAN: 1. Left femoral neck fracture, status post left bipolar hip arthroplasty. Clinically, the patient is doing fine with her pain under control. The hemoglobin has dropped a little bit. We will continue to monitor CBC daily. 2. Chronic back pain, with pain pump. The patient has been on a morphine pump. I think, at this point, we will continue with the current medications. Even, I think, before she is going to rehab, we may need to contact her pain doctor to see if he wants to do any modifications to her current treatment. At this point, we have not heard from Dr. Holley's office yet. At this point, we will continue with the current management ordered by orthopedics. 3. Hypertension. Blood pressure is under control. We will continue with the same management 4. Undernourishment with body mass index of 16.1. Dietitian will evaluate this patient. 5. Disposition. We will continue to monitor this patient closely. Patient will continue working with physical therapy and ultimate disposition is to send this patient to a rehab facility. cc: Rodney Davis MD
--- NOTE | 2019-04-25 13:01 | ORTHOPAEDICS PROGRESS NOTE ---
DATE: 04/25/2019 SUBJECTIVE: Melinda Watkins is a 73-year-old female who is postoperative day 1 from a left bipolar hemiarthroplasty. She has no complaints. OBJECTIVE: She is a well-developed, well-nourished female. She is alert, oriented, and cooperative with exam. Her wound is clean, dry, intact without sign of infection. LABORATORY DATA: Her hemoglobin is 10.7, her hematocrit is 33.2. ASSESSMENT: Left bipolar hemiarthroplasty. PLAN: I had originally ordered Xarelto for her, but apparently her daughter of a stroke after being placed on Xarelto, and she refused to take it. I have switched her now to Lovenox injections, which hopefully she will tolerate. Also, the nurses are supposed to update her pain pump per pain clinic. She can begin physical therapy today and will likely go to rehab later in the week. cc: Radames Madrigal MD
[2019-04-25] MEDS: ZONEGRAN PO SCH (22:13)
[2019-04-26] MEDS: CELEBREX PO SCH ×3 (01:06→22:19)
[2019-04-26] MEDS: LYRICA PO SCH ×2 (01:07→11:23)
[2019-04-26] MEDS: PERIDEX MT SCH ×3 (01:08→22:19)
[2019-04-26] MEDS: ULTRAM PO SCH ×4 (02:20→17:19)
[2019-04-26] MEDS: TYLENOL PO SCH ×4 (02:21→17:19)
[2019-04-26] MEDS ORDERED: LOVENOX SUBQ SCH (06:00)
[2019-04-26 07:00] LABS: HEMATOCRIT 32.2 % (37.0-47.0); HEMOGLOBIN 10.5 g/dL (12.0-16.0); MCH 29.2 PG (27-31); MCHC 32.6 g/dL (33-37); MCV 89.4 FL (81-99); MPV 9.5 FL (7.4-10.4); RBC 3.6 XMIL (4.2-5.4); RDW 13.1 % (11.5-14.5); WBC 11.68 X1000 (4.8-10.8)
[2019-04-26 07:30] LABS: AGAP 11; BUN 7 mg/dL (8-22); CALCIUM 8.6 mg/dL (8.8-10.2); CHLORIDE 104 mmol/L (98-107); COSMO 275; CREATININE 0.6 mg/dL (0.5-0.9); ESTIMATED GFR > 60; GLUCOSE 93 mg/dL (70-104); POTASSIUM 3.7 mmol/L (3.5-5.1); SODIUM 139 mmol/L (136-145); TCO2 24 mmol/L (25-35)
[2019-04-26] MEDS: PEPCID PO SCH (08:29)
[2019-04-26] MEDS: LOVENOX SUBQ SCH (08:29)
[2019-04-26] MEDS: COLACE PO SCH ×2 (08:29→22:19)
[2019-04-26] MEDS: PROZAC PO SCH (08:29)
[2019-04-26] MEDS: FLONASE NAS SCH (08:30)
--- NOTE | 2019-04-26 12:11 | PROGRESS NOTE ---
DATE: 04/26/2019 SUBJECTIVE: The patient reports feeling fine. Pain in left hip where she got surgery is under control. No other complaints noted. OBJECTIVE: Vital Signs: Temperature 97.5, heart rate 71, respiratory rate 16, blood pressure 150/76, O2 saturation 98% on 2 L nasal cannula. General Examination: This is a 73-year-old, female lying in bed, in no acute distress. Cardiovascular Examination: S1 and S2 heard. No murmurs, gallops, or rubs. Regular rate and rhythm. Respiratory Examination: Clear bilaterally to auscultation. No work of breathing or using accessory muscles. Abdomen: Soft, nontender to palpation. Bowel sounds present. No organomegaly. Extremities: No clubbing, cyanosis, or edema. Peripheral pulses present in both legs. Abdomen: Soft, nontender to palpation. There is a generator pocket in the left lower abdomen where there is a pain pump. Bowel sounds present. No organomegaly. Extremities: No clubbing, cyanosis, or edema. Peripheral pulses present in both legs. Left hip covered by dressing. Neurological Examination: The patient is awake, alert, oriented x3. Moves 4 extremities. Laboratory Data: Reviewed. ASSESSMENT AND PLAN: 1. Left femoral neck fracture, status post left bipolar hip arthroplasty. Clinically, this patient is doing fine. Hemoglobin is stable. Orthopedics following this patient. We will follow recommendations. 2. Chronic back pain, with pain pump. The patient has been on a morphine pump. She is being seen in the [facility] in [place]. Dr. Holley is her doctor. We are going to call him again to see what we can do regarding her pump that is supposed to be empty tomorrow. In the meantime, her pain is well controlled with current medications. We will continue with the same management. 3. Hypertension. Blood pressure is under control. We will continue with the same medication. 4. Malnourishment with body mass index of 16.1. Dietitian following this patient. 5. Disposition. At this point, we are going to keep this patient in the hospital until orthopedics clears her and then she is going to be sent to a rehab facility. cc: Rodney Davis MD
--- NOTE | 2019-04-26 20:15 | ORTHOPAEDICS PROGRESS NOTE ---
DATE: 04/26/2019 SUBJECTIVE: Melinda Watkins is a 73-year-old female postoperative day 2 from a left bipolar hemiarthroplasty. She complains of stiffness, but no other complaints. OBJECTIVE: She is a well-developed, well-nourished female. She is alert and cooperative. Exam of her leg reveals the wound is healing nicely. There is no sign of infection. Her calf is soft and neurovascular intact without sign of DVT. ASSESSMENT: Left bipolar hemiarthroplasty. PLAN: We will continue working with therapy. She will likely go to rehab later in the week. cc: Radames Madrigal MD
[2019-04-26] MEDS: ZONEGRAN PO SCH (22:18)
[2019-04-27] MEDS: LYRICA PO SCH ×2 (00:44→09:21)
[2019-04-27] MEDS: ULTRAM PO SCH ×3 (03:25→08:48)
[2019-04-27] MEDS: TYLENOL PO SCH ×2 (03:25→08:50)
[2019-04-27 07:26] LABS: HEMOGLOBIN 11.4 g/dL (12.0-16.0); MCH 29.5 PG (27-31); MCHC 32.6 g/dL (33-37); MCV 90.4 FL (81-99); MPV 9.5 FL (7.4-10.4); RBC 3.87 XMIL (4.2-5.4); RDW 13.3 % (11.5-14.5); WBC 9.56 X1000 (4.8-10.8)
[2019-04-27 08:10] LABS: AGAP 12; BUN 11 mg/dL (8-22); CALCIUM 8.8 mg/dL (8.8-10.2); CHLORIDE 101 mmol/L (98-107); COSMO 270; CREATININE 0.6 mg/dL (0.5-0.9); ESTIMATED GFR > 60; GLUCOSE 79 mg/dL (70-104); POTASSIUM 3.7 mmol/L (3.5-5.1); SODIUM 136 mmol/L (136-145); TCO2 23 mmol/L (25-35)
[2019-04-27] MEDS ORDERED: TYLENOL PO PRN (08:45)
[2019-04-27] MEDS ORDERED: ULTRAM PO PRN (08:48)
[2019-04-27] MEDS: COLACE PO SCH (09:17)
[2019-04-27] MEDS: PROZAC PO SCH (09:17)
[2019-04-27] MEDS: CELEBREX PO SCH (09:17)
[2019-04-27] MEDS: PERIDEX MT SCH (09:17)
[2019-04-27] MEDS: PEPCID PO SCH (09:17)
[2019-04-27] MEDS: LOVENOX SUBQ SCH (09:18)
[2019-04-27] MEDS: FLONASE NAS SCH (09:20)
[2019-04-27 11:40] VITALS: BP 136/60
--- NOTE | 2019-04-27 12:43 | PROGRESS NOTE ---
DATE: 04/27/2019 SUBJECTIVE: Patient reports feeling fine. According to the manager case patient is supposed to go to [facility] to have her morphine pump refilled today. The patient reports feeling fine. OBJECTIVE: Vital Signs: Temperature 97.8 degrees, heart rate 73, respiratory rate 16, blood pressure 136/60. O2 saturation 96% on room air. General: This is a chronically ill-appearing, malnourished 73-year-old female lying in bed, in no acute distress. Cardiovascular: S1, S2 heard. No murmurs, gallops, or rubs. Regular rate and rhythm. Respiratory: Clear bilaterally to auscultation. No work of breathing or using accessory muscles. Abdomen: Soft, nontender to palpation. Bowel sounds present. No organomegaly. There is a generator pocket in the left lower abdomen where there is a pain pump. Bowel sounds present. No organomegaly. Extremities: No clubbing, cyanosis, or edema. Peripheral pulses in both legs. Left hip covered by dressing. Neurological: Patient alert and oriented x3. Moves 4 extremities. LABORATORY DATA: Reviewed. ASSESSMENT AND PLAN: 1. Left femoral neck fracture status post left bipolar hip arthroplasty. Clinically, patient is doing okay. Hemoglobin is stable. Orthopedics following this patient. We will follow recommendations. 2. Chronic back pain. Pain pump. The patient is supposed to be seen at [facility] in [place]. Dr. Holley is her doctor. She is supposed to have her morphine pump refilled today and then she will come back to the hospital. She will be brought by ambulance. 3. Hypertension. Blood pressure is under control. We will continue with the same medication. 4. Malnourishment with BMI of 16.1. Dietitian following this patient. 5. Disposition. At this point, the patient is medically stable. She has been cleared by Orthopedics and at this point, we are waiting for a rehab bed. cc: Rodney Davis MD
--- NOTE | 2019-04-27 13:46 | DISCHARGE SUMMARY ---
ADMISSION DATE: 04/23/2019 DISCHARGE DATE: 04/27/2019 DISCHARGE DIAGNOSES: 1. Left femoral neck fracture, status post left bipolar hip arthroplasty performed by Dr. Madrigal. 2. Recent mechanical fall. 3. Chronic back pain, on a morphine pain pump. 4. Hypertension. CONSULTATIONS: Dr. Madrigal from orthopedics. PROCEDURES: 1. Hip pelvis x-ray showed a left femoral neck fracture. 2. Chest x-ray showed stable chest. 3. Left bipolar hip arthroplasty performed by Dr. Madrigal on 04/24/2019. HOSPITAL COURSE: This is a 73-year-old, female who presented to the emergency department complaining of pain after falling and developed left hip pain. Upon ER evaluation, we found out that she had a left femoral hip fracture. We consulted orthopedics who performed the surgery as we mentioned above. Patient tolerated surgery very well. Actually, the next day, she start working with physical therapy. Able to walk some. From an orthopedic standpoint, the patient has been cleared today to go to rehab. The patient also has chronic back pain. She has been seen in the [facility] by Dr. Holley. Plan from discharge today is she is going to his office today. She is going to have her morphine pump filled up and then she is going to a rehab facility. At this point, her pain is under control with current medications. We will continue with the same management. Also, her blood pressure has been under control. We will continue with current medications. At this point, the patient is medically stable and being released in a stable condition. DISCHARGE PHYSICAL EXAMINATION: Vital Signs: Temperature 97.8 degrees, heart rate 73, respiratory rate 16, blood pressure 136/60, O2 saturation 96% on room air. General Examination: This is a 73-year-old, female, chronically ill-looking and malnourished, lying in bed, in no acute distress. Cardiovascular Examination: S1 and S2 heard. No murmurs, gallops, or rubs. Regular rate and rhythm. Respiratory Examination: Clear bilaterally to auscultation. No work of breathing or using accessory muscles. Abdomen: Soft, nontender to palpation. Bowel sounds present. No organomegaly. There is a generator pocket in the left lower abdomen where there is a morphine pain pump. Extremities: No clubbing, cyanosis, or edema. Peripheral pulses present in both legs. Left hip covered by a dressing. Neurological Examination: The patient is alert and oriented x3. Moves 4 extremities. DISCHARGE DISPOSITION: Patient is going to a rehab facility. LIST OF MEDICATIONS: 1. Oxycodone 5 mg 1 tablet p.o. every 3 hours as needed for pain. 2. Docusate 100 mg 1 tablet p.o. b.i.d. 3. Pregabalin 75 mg 1 tablet p.o. b.i.d. 4. Milk of magnesia p.r.n. to constipation. 5. Tylenol 1000 mg p.o. every 6 hours as needed for pain. 6. Zofran ODT 8 mg 1 tablet p.o. every 6 hours as needed for nausea. 7. Fluoxetine 40 mg 1 tablet p.o. daily. 8. Amlodipine 1 tablet p.o. daily, 10 mg. 9. Zonegran 300 mg 1 tablet p.o. at bedtime. 10. Fluticasone 1 spray intranasal daily. 11. Augmentin 875 one tablet p.o. daily for the time that she was prescribed. Time discharging this patient, 35 minutes. cc: Rodney Davis MD
== END 2019-04-27 14:24 | DRG 470 ==
LOC: P.ED 14:58 → 4N 16:53 → SUATTDRO 16:53
PROVIDERS: ATTEND Internal Medicine